=== PATIENT | female | born 1970 | race Caucasian/White ===

== ENCOUNTER → 2016-10-03 | Outpatient (CLI) | payer MEDICARE, OTHER | END | disposition home or self-care (01) | LOC: LABWHC1 07:36 | PROVIDERS: ATTEND Internal Medicine Endocrinology, Diabetes & Metabolism | DX: E11.65 Type 2 diabetes mellitus with hyperglycemia (principal) | CPT/HCPCS: 36415; 82947; 84681 ==

== ENCOUNTER → 2018-02-20 | Outpatient (CLI) | payer MEDICARE, OTHER ==
--- NOTE | 2018-02-26 09:27 | MM ---
Reason for exam: clinical finding. Baseline mammogram. Physical Findings: Nurse did not find any significant physical abnormalities on exam. MG 3D Diag Mammo W/Cad PRAMOD Bilateral CC and MLO view(s) were taken. The breast tissue is heterogeneously dense. This may lower the sensitivity of mammography. There is a 9mm mass at 12:00 o'clock on the left breast at middle depth. No suspicious abnormality on the right breast. There is a right intramammary node. These results were verbally communicated with the patient and result sheet given to the patient on 02/20/18. ASSESSMENT: Incomplete: need additional imaging evaluation, BI-RAD 0 RECOMMENDATION: Ultrasound of the left breast. (upper outer quadrant)
--- NOTE | 2018-02-26 09:29 | USB ---
Reason for exam: additional evaluation requested from abnormal screening. US Breast Limited LT Left limited breast ultrasound including focal area of concern, retroareolar and axilla demonstrates a 0.8 x 0.8 x 0.7cm cystic lesion at 12:00 o'clock, increased through transmission, benign finding. These results were verbally communicated with the patient and result sheet given to the patient on 02/20/18. ASSESSMENT: Benign, BI-RAD 2 RECOMMENDATION: Routine screening mammogram of both breasts in 1 year.
== END | disposition home or self-care (01) ==
LOC: RADMAMWWP 14:05
PROVIDERS: ATTEND Family Medicine
DX: R92.8 Other abnormal and inconclusive findings on diagnostic imaging of breast (principal); N63.10 Unspecified lump in the right breast, unspecified quadrant; N63.20 Unspecified lump in the left breast, unspecified quadrant
CPT/HCPCS: 77066; 76642; G0279; 77062

== ENCOUNTER → 2018-08-26 | Outpatient (CLI) | payer MEDICARE, OTHER ==
--- NOTE | 2018-08-27 08:13 | XR ---
EXAMINATION TYPE: XR Hip Complete LT DATE OF EXAM: 08/26/2018 COMPARISON: None HISTORY: Pain, fall on ice 2 days prior TECHNIQUE: 2 view left hip FINDINGS: There is narrowing of the joint space. The femoral head articulates with the acetabulum. No acute fractures are evident. Some degenerative changes noted at the left sacroiliac joint. IMPRESSION: 1. No acute fractures. 2. Mild degenerative change left hip.
--- NOTE | 2018-08-27 08:14 | XR ---
EXAMINATION TYPE: XR lumbosacral spine min 4V DATE OF EXAM: 08/26/2018 COMPARISON: None HISTORY: Fall on ice 2 days prior TECHNIQUE: Five-view lumbar spine FINDINGS: There 5 lumbar-type vertebral bodies. Visualized pedicles are intact. Subtle scoliosis with convexity to the left centered at L3 is present. Mild facet degenerative changes present L5-S1. No s pondylolytic defects are evident. Disc heights are preserved. Vertebral body heights are preserved. M ild spondylosis is present L3-L4. IMPRESSION: 1. Mild degenerative changes. No acute osseous abnormality evident.
--- NOTE | 2018-08-27 08:16 | XR ---
EXAMINATION TYPE: XR ribs LT w pa chest xray DATE OF EXAM: 08/26/2018 COMPARISON: 07/07/2014 HISTORY: Lower rib pain TECHNIQUE: Chest examined in the frontal projection. Left ribs are examined in 2 views each. FINDINGS: No pneumothorax is evident. No displaced rib fractures are evident. No fluid collection the lung bases evident. No acute pulmonary process is evident. IMPRESSION: 1. Normal left ribs
== END | disposition home or self-care (01) ==
LOC: RADXRYALE 16:04
PROVIDERS: ATTEND Physician Assistant Medical
DX: M16.12 Unilateral primary osteoarthritis, left hip (principal); M47.27 Other spondylosis with radiculopathy, lumbosacral region; R07.89 Other chest pain
CPT/HCPCS: 72110; 73502

== ENCOUNTER → 2019-10-07 | Outpatient (CLI) | payer MEDICARE, OTHER ==
--- NOTE | 2019-10-07 14:22 | XR ---
EXAMINATION TYPE: XR lumbosacral spine min 4V DATE OF EXAM: 10/07/2019 CLINICAL HISTORY: Low back pain after fall last week TECHNIQUE: Frontal, lateral, and oblique images of the lumbar spine are obtained. COMPARISON: 08/26/2018 FINDINGS: There remains a mild levoscoliosis of the lumbar spine. There are 5 lumbar type vertebral bodies identified. The lumbar spine shows satisfactory vertebral body heights. Minimal retrolisthesi s of L3 on L4. Small anterior osteophytes at L2-L3, L3-L4 and L4-5. Mild facet arthropathy at L5-S1. Vertebral body heights and disk space heights are within normal limits. The oblique images appear w ithin normal limits. The overlying soft tissue appears unremarkable. Cholecystectomy clips are prese nt. IMPRESSION: 1. No acute fracture is seen in the lumbar spine. 2. Mildly progressed mild multilevel degenerative disc disease of the lumbar spine in comparison to t he prior. 3. Mild levoscoliosis of the lumbar spine. 4. Minimal retrolisthesis of L3 on L4 is likely on a degenerative basis.
== END | disposition home or self-care (01) ==
LOC: RADXRYALE 13:30
PROVIDERS: ATTEND Physician Assistant
DX: M51.36 Other intervertebral disc degeneration, lumbar region (principal); M43.16 Spondylolisthesis, lumbar region; M41.86 Other forms of scoliosis, lumbar region
CPT/HCPCS: 72110

== ENCOUNTER → 2020-10-10 | Outpatient (CLI) | payer MEDICARE, OTHER ==
--- NOTE | 2020-10-11 10:30 | MM ---
Reason for exam: screening (asymptomatic). Last mammogram was performed 2 years and 8 months ago. History: Family history of breast cancer in mother. Physical Findings: A clinical breast exam by your physician is recommended on an annual basis and results should be correlated with mammographic findings. MG 3D Screening Mammo W/Cad Bilateral CC and MLO view(s) were taken. Prior study comparison: February 20, 2018, bilateral MG 3d diag mammo w/cad PRAMOD. The breast tissue is heterogeneously dense. This may lower the sensitivity of mammography. There is chronic nodularity bilaterally. There is no discrete abnormality. ASSESSMENT: Benign, BI-RAD 2 RECOMMENDATION: Routine screening mammogram of both breasts in 1 year.
== END ==
LOC: RADMAMWWP 16:22
PROVIDERS: ATTEND Family Medicine
DX: Z12.31 Encounter for screening mammogram for malignant neoplasm of breast (principal); Z80.3 Family history of malignant neoplasm of breast
CPT/HCPCS: 77063; 77067

== ENCOUNTER → 2021-07-05 | Outpatient (CLI) | payer MEDICARE, OTHER ==
[~2021-07-05] MED LIST: CASIRIVIMAB (REGN10933) (EUA) 600 MG, IMDEVIMAB (REGN10987) (EUA) 600 MG in SODIUM CHLO... IVPB NR; ONDANSETRON 4 MG/2 ML VIAL IVP ONE; SODIUM CHLORIDE 0.9% 50 ML IVPB ONE; SODIUM CHLORIDE 0.9% 500 ML 500 ML in EMPTY BAG 1 BAG IV PRN
[2021-07-05 14:23] VITALS: TEMP 97.3
[2021-07-05 15:36] VITALS: BP 96/65; PULSE 64; RESP 16
== END | disposition home or self-care (01) ==
LOC: PROCWHC3 13:34
PROVIDERS: ATTEND Physician Assistant
DX: U07.1 COVID-19 (principal)
CPT/HCPCS: 96360; 96375; J2405; Q0244

== ENCOUNTER 2023-04-02 17:22 | Inpatient (IN) | payer MEDICARE, OTHER ==
--- NOTE | 2023-04-02 21:32 | XR ---
EXAM: XR Chest, 2 Views CLINICAL HISTORY: SOB. TECHNIQUE: Frontal and lateral views of the chest. COMPARISON: No relevant prior studies available. FINDINGS: Lungs: No consolidation. Pleural space: No pneumothorax. Heart: Upper limits of normal for size. Mediastinum: Unremarkable. Bones/joints: No acute osseous abnormality. Other: Presumed cholecystectomy clips IMPRESSION: No acute cardiopulmonary abnormality.
[2023-04-03] MEDS ORDERED: ASPIRIN 325 MG TAB PO STA
[2023-04-03] MEDS ORDERED: ONDANSETRON ODT 4 MG TAB PO PRN (00:02)
[2023-04-03] MEDS ORDERED: CYCLOBENZAPRINE 10 MG TAB PO PRN (00:02)
[2023-04-03] MEDS: SODIUM CHLORIDE 0.9% 1,000 ML IV SCH ×2 (00:20→23:56)
[2023-04-03] MEDS: DOCUSATE 100 MG CAP PO SCH ×5 (00:20→23:56)
[2023-04-03] MEDS: traMADol 50 MG TAB PO PRN ×3 (02:41→23:33)
[2023-04-03] MEDS ORDERED: INSULIN ASPART (NovoLOG) 100 UNIT/ML VIAL SQ PRN (04:27)
--- NOTE | 2023-04-03 05:34 | P.HPIM ---
History of Present Illness H&P Date: 04/03/23 Chief Complaint: Left-sided weakness 52-year-old female with diabetes mellitus peripheral neuropathy She comes in from her doctor's office after she went there for evaluation for left-sided weakness she reports that she woke up on Friday, April 02 at 5:30 in the morning feeling weakness in her left upper extremity she didn't think much of it she thought she might have slept off went back to sleep woke up later that morning around 8 or 9 in the morning still having some left-sided weakness noticed that she has left upper and lower extremity weakness but worse in the upper extremities. Denies any falls denies any injuries denies any history of stroke denies any history of A. fib denies any history of blood clots. She also notices that her symptoms were getting worse throughout the day she called her doctor scheduled an appointment upon evaluation by her doctor in the office he immediately recognized possibility of stroke he called 911 and sent her to the ER. Patient reports that her symptoms are not improving and currently consist of left-sided weakness worse in the upper than lower extremities denies any numbness or tingling but reports some slurred speech denies any headache or changes in vision or hearing Again patient denies any history of stroke, TIA, heart attack, blood clots. Denies any head injury or falls. She denies any bleeding denies being on any blood thinners Patient admits to tobacco smoking denies any illicit drugs or alcohol review of systems Pertinent positives as noted in HPI. All other systems were reviewed and are negative on exam Constitutional: No acute distress, conversant, pleasant Eyes: Anicteric sclerae, moist conjunctiva, Pupils equal round reactive to light ENMT: NC/AT Oropharynx clear, no erythema, or exudates Neck: Supple, no masses, or JVD No carotid bruits No thyromegaly Lungs: Clear to auscultation Clear to percussion Normal respiratory effort, no accessory muscle use Cardiovascular: Heart regular in rate and rhythm, No murmurs, gallops, or rubs No peripheral edema Abdominal: Soft Nontender, no guarding, rebound or rigidity Abdomen moving with respiration Normoactive bowel sounds No hepatomegaly, No splenomegaly No palpable mass No abdominal wall hernia noted Skin: Normal temperature, tone, texture, turgor No induration No subcutaneous nodules No rash, lesions No ulcers Extremities: No digital cyanosis No clubbing Pedal pulses intact and symmetrical Radial pulses intact and symmetrical No calf tenderness Psychiatric: Alert and oriented to person, place and time Appropriate affect fair judgement Neuro Muscles Strength 5/5 in right upper and lower extremity, 4 out of 5 in left upper and lower extremity with some slurred speech Sensation to light touch grossly present throughout Cranial nerves II-XII grossly intact Finger-nose is intact on the right side, dysmetria on the left side Lymphatics: no palpable cervical or supraclavicular lymph nodes Past Medical History Past Medical History: Diabetes Mellitus, Fibromyalgia, Hyperlipidemia, Rheumatoid Arthritis (RA) Additional Past Medical History / Comment(s): BACK PAIN, neuropathy History of Any Multi-Drug Resistant Organisms: None Reported Past Surgical History: Appendectomy, Cholecystectomy, Hysterectomy, Joint Replacement, Orthopedic Surgery Additional Past Surgical History / Comment(s): bilateral knee ortho sg, right ankle tumor removal Past Psychological History: Anxiety, Depression Smoking Status: Current every day smoker Past Alcohol Use History: None Reported Past Drug Use History: None Reported Additional Drug Use History / Comment(s): smoking sine she was 10 years old. Medications and Allergies Home Medications Medication Instructions Recorded Confirmed Type ALPRAZolam [Xanax] 1 mg PO BID PRN 07/08/14 04/02/23 History Furosemide [Lasix] 40 mg PO DAILY 07/08/14 04/02/23 History Gabapentin 600 mg PO QID 07/08/14 04/02/23 History Simvastatin [Zocor] 40 mg PO DAILY 07/08/14 04/02/23 History rOPINIRole HCL [Requip] 2 mg PO HS 07/08/14 04/02/23 History traMADol HCl [Ultram] 50 mg PO Q6H PRN 07/08/14 04/02/23 History Cyclobenzaprine [Flexeril] 10 mg PO TID PRN 04/02/23 04/02/23 History DULoxetine HCL [Cymbalta] 30 mg PO DAILY 04/02/23 04/02/23 History Insulin Aspart (For Pump) [NovoLOG 0.01 unit SQ-PUMP CONTINUOUS 04/02/23 04/02/23 History (For Pump)] Ondansetron Odt [Zofran Odt] 4 mg PO Q8HR PRN 04/02/23 04/02/23 History Allergies Allergy/AdvReac Type Severity Reaction Status Date / Time codeine AdvReac Rash/Hives Verified 07/05/21 14:22 ibuprofen [From Motrin] AdvReac Nausea & Verified 07/05/21 14:22 Vomiting insulin detemir AdvReac Rash/Hives Verified 07/05/21 14:22 [From Levemir] insulin lispro AdvReac Rash/Hives Verified 07/05/21 15:42 [From Humalog U-100 Insulin] Physical Exam Vitals: Vital Signs Temp Pulse Pulse Resp BP BP Pulse Ox 04/03/23 04:00 98.1 F 72 18 108/68 97 04/02/23 23:00 65 18 110/59 98 04/02/23 22:31 60 16 115/66 97 04/02/23 20:27 98.1 F 98 18 118/79 98 Intake and Output 04/02/23 04/02/23 04/03/23 14:59 22:59 06:59 Other: Weight 79.379 kg 79.379 kg Thrombosis Risk Factor Assmnt - Choose All That Apply Any of the Below Risk Factors Present?: Yes Each Factor Represents 1 point: Age 41-60 years Other Risk Factors: No Other congenital or acquired thrombophilia - If yes, enter type in comment: No Thrombosis Risk Factor Assessment Total Risk Factor Score: 1 Thrombosis Risk Factor Assessment Level: Low Risk Assessment and Plan Assessment: 52-year-old female with diabetes mellitus on insulin pump comes in from her doctor's office for suspected stroke discussed the case with the ED doctor and accepted the admission for suspected ischemic stroke with left-sided weakness with anticipated length of stay more than 2 midnights Acute ischemic stroke with left-sided weakness Due to downtime of [employer] reports of CAT scan is not currently available however ED doctor reported CT of the brain and CTA of the head and neck both unremarkable Patient given aspirin and statin, no TPA given due to out of the window Continue neuro checks Neurology consultation Consider MRI of the brain Check echocardiogram with bubble study Fall precautions PT/OT evaluation Allow for permissive hypertension Chronic conditions Diabetes mellitus Continue with insulin pump which has automatic CGM monitoring Full code DVT prophylaxis mechanical
[2023-04-03 06:27] LABS: Glucose,Whole Blood 213 mg/dL (70-110)
[2023-04-03 09:16] LABS: Chol/HDL Ratio 3.26 Ratio; LDL Cholesterol,Calculated 41.3 mg/dL (0.0-131.0)
[2023-04-03] MEDS: ATORVASTATIN 20 MG TAB PO SCH (09:35)
[2023-04-03] MEDS: FAMOTIDINE 20 MG TAB PO SCH ×3 (09:35→20:41)
--- NOTE | 2023-04-03 10:08 | US ---
EXAM: US Duplex Left Upper Extremity Veins CLINICAL HISTORY: Left arm swelling today TECHNIQUE: Real-time duplex ultrasound scan of the left upper extremity veins integrating B-mode two-dimensional vascular structure, Doppler spectral analysis, color flow Doppler imaging and compression. COMPARISON: No relevant prior studies available. FINDINGS: Deep veins: Unremarkable. No DVT in the internal jugular, subclavian, axillary, or brachial veins. The veins demonstrate normal color flow, are normally compressible, with normal phasic flow and/or augmentation response. Superficial veins: Unremarkable. No thrombus in the visualized basilic and cephalic veins. Soft tissues: No acute findings. IMPRESSION: Normal left upper extremity duplex venous ultrasound.
--- NOTE | 2023-04-03 10:28 | CT ---
EXAM: CT Angiography Neck With Intravenous Contrast CLINICAL HISTORY: code stroke TECHNIQUE: Routine carotid CT angiography protocol was performed with intravenous contrast. NASCET criteria using the distal ICAs for comparison were used for evaluation of stenoses. CTDI is 26.9 mGy and DLP is 585 mGy-cm. This CT exam was performed using one or more of the following dose reduction techniques: automated exposure control, adjustment of the mA and/or kV according to patient size, and/or use of iterative reconstruction technique. 3D and MIP reconstructed images were created and reviewed. COMPARISON: None FINDINGS: VASCULATURE: Right common carotid artery: Unremarkable. No occlusion or significant stenosis. No dissection. Right internal carotid artery: Unremarkable. Extracranial segment is patent with no occlusion or significant stenosis. No dissection. Right external carotid artery: Unremarkable. No occlusion. Right vertebral artery: Unremarkable. No occlusion or significant stenosis. No dissection. Left common carotid artery: Unremarkable. No occlusion or significant stenosis. No dissection. Left internal carotid artery: Unremarkable. Extracranial segment is patent with no occlusion or significant stenosis. No dissection. Left external carotid artery: Unremarkable. No occlusion. Left vertebral artery: Unremarkable. No occlusion or significant stenosis. No dissection. NECK: Bones/joints: Straightening of the normal cervical lordosis. Degenerative changes of the spine. Soft tissues: Unremarkable. Lung apices: Clear. CAROTID STENOSIS REFERENCE USING NASCET CRITERIA: % ICA stenosis = (1 - narrowest ICA diameter/diameter of distal cervical ICA) x 100. Mild - <50% stenosis. Moderate - 50-69% stenosis. Severe - 70-94% stenosis. Near occlusion - 95-99% stenosis. Occluded - 100% stenosis. IMPRESSION: No significant stenosis, occlusion, or dissection. EXAM: CT Angiography Head With Intravenous Contrast CLINICAL HISTORY: neuro deficit TECHNIQUE: Axial computed tomographic angiography images of the head with intravenous contrast. CTDI is 12.5 mGy and DLP is 585 mGy-cm. This CT exam was performed using one or more of the following dose reduction techniques: automated exposure control, adjustment of the mA and/or kV according to patient size, and/or use of iterative reconstruction technique. 3D and MIP reconstructed images were created and reviewed. COMPARISON: None FINDINGS: Right internal carotid artery: No acute findings. Intracranial segment is patent with no significant stenosis. No aneurysm. Right anterior cerebral artery: Unremarkable. No occlusion or significant stenosis. No aneurysm. Right middle cerebral artery: Unremarkable. No occlusion or significant stenosis. No aneurysm. Right posterior cerebral artery: Unremarkable. No occlusion or significant stenosis. No aneurysm. Right vertebral artery: Unremarkable as visualized. Left internal carotid artery: No acute findings. Intracranial segment is patent with no significant stenosis. No aneurysm. Left anterior cerebral artery: Unremarkable. No occlusion or significant stenosis. No aneurysm. Left middle cerebral artery: Unremarkable. No occlusion or significant stenosis. No aneurysm. Left posterior cerebral artery: Unremarkable. No occlusion or significant stenosis. No aneurysm. Left vertebral artery: Unremarkable as visualized. Basilar artery: Unremarkable. No occlusion or significant stenosis. No aneurysm. IMPRESSION: Normal head CTA. MTDD
--- NOTE | 2023-04-03 10:29 | CT ---
EXAM: CT Head Without Intravenous Contrast CLINICAL HISTORY: neuro deficit code stroke TECHNIQUE: Axial computed tomography images of the head/brain without intravenous contrast. CTDI is 49.1 mGy and DLP is 1104.6 mGy-cm. This CT exam was performed using one or more of the following dose reduction techniques: automated exposure control, adjustment of the mA and/or kV according to patient size, and/or use of iterative reconstruction technique. COMPARISON: None FINDINGS: Brain: No acute infarct or hemorrhage. No extra-axial fluid collection. No mass effect or midline shift. Small remote lacunar infarct or perivascular space in the right basal ganglia. Ventricles and sulci: Normal. No ventriculomegaly or intraventricular hemorrhage. Bones: Normal. No bony lesion or acute fracture. Subcutaneous tissues: Normal. Sinuses: Normal. No air-fluid levels or mucosal thickening. Mastoid air cells: Normal. Orbits: Grossly unremarkable. IMPRESSION: No acute intracranial abnormality. If there is persistent concern for acute infarct, consider further evaluation with MRI. MTDD
[2023-04-03 11:46] LABS: Glucose,Whole Blood 142 mg/dL (70-110)
--- NOTE | 2023-04-03 13:13 | P.CNNES ---
History of Present Illness Consult date: 04/03/23 Requesting physician: Silverio Tolbert Reason for Consult: Left arm weakness/numbness History of Present Illness: Patient is a 52-year-old right-handed female with history of diabetes, hyperlipidemia, came to the hospital yesterday at 5:22 PM for left arm numbness and weakness. Patient states that she went to sleep 11 PM the night prior to arrival in usual state of health. She woke up at 5:30 AM, and felt numbness of the left arm and left hand. She felt that she may have slept wrong, therefore changes the position and went back to sleep. She woke up at 8:30 AM and was no better. She could not seed cone picker anything with the left hand. Her left arm feels ice cold. She tried stretching and forced it to move. She felt as if the left arm was "not a past", like hanging on the side. The whole arm was numb. The left arm swelled up and was hurting. She also noticed a little weakness of the left leg, as feeling weird while walking. Also complaining of tingling in the neck and the left pectoral region and left facial region. Also feels the left face is slightly weaker. Also admits to slightly slurring. Yesterday she went to see her primary physician at an appointment at 3:30 PM. She was transferred to the hospital by ambulance to rule out CVA. Patient was given aspirin 324 mg in the ER. Patient was not a candidate for TPA, as symptoms have been present for over 18 hours prior to presentation. Vital signs on arrival blood pressure 118/79, pulse rate 98 temperature 98.1. Blood test shows negative troponin,, glucose 213. CT head revealed no acute intracranial abnormality. I personally reviewed CT head, agree with the findings. Home medications include Requip 2 mg at bedtime, Lasix 40 mg, Zocor 40 mg, Xanax 1 mg twice a day when necessary, gabapentin 600 mg 4 times a day, tramadol 50 mg every 6 hours, Cymbalta 30 mg, Zofran when necessary Flexeril 10 mg 3 times a day when necessary and insulin. Patient does not take any antiplatelet medication at home. Patient has history of diabetes type 1 since late 30s or early 40s. She has insulin pump. She denies hypertension, does have hyperlipidemia. Patient has history of smoking 1 pack per day since age 10. She has smoked off and on, for about 30 pack years of smoking. Drinks alcohol very rarely, no drugs use. Patient denies any previous history of strokes or TIA. Review of Systems Constitutional: Reports weight loss, Denies chills, Denies fever Ears: deny: decreased hearing, ear discharge Ears, nose, mouth and throat: Denies headache (Gets little headache "here and there"), Denies sore throat Cardiovascular: Denies chest pain, Denies shortness of breath Respiratory: Denies cough, Denies excessive sputum Gastrointestinal: Reports nausea, Denies abdominal pain, Denies diarrhea, Denies vomiting Genitourinary: Reports stress incontinence, Reports urinary frequency Musculoskeletal: Reports low back pain, Reports neck stiffness Musculoskeletal: left: shoulder pain (Soreness in the left shoulder, shooting pain behind the left collarbone) Integumentary: Denies pruritus, Denies rash Neurological: Reports as per HPI Psychiatric: Reports anxiety, Reports depression Endocrine: Reports weight change, Denies fatigue Hematologic/Lymphatic: Reports easy bleeding, Reports easy bruising Past Medical History Past Medical History: Diabetes Mellitus, Fibromyalgia, Hyperlipidemia, Rheumatoid Arthritis (RA) Additional Past Medical History / Comment(s): BACK PAIN, neuropathy History of Any Multi-Drug Resistant Organisms: None Reported Past Surgical History: Appendectomy, Cholecystectomy, Hysterectomy, Joint Replacement, Orthopedic Surgery Additional Past Surgical History / Comment(s): bilateral knee ortho sg, right ankle tumor removal Past Psychological History: Anxiety, Depression Smoking Status: Current every day smoker Past Alcohol Use History: None Reported Past Drug Use History: None Reported Additional Drug Use History / Comment(s): smoking sine she was 10 years old. Medications and Allergies Home Medications Medication Instructions Recorded Confirmed Type ALPRAZolam [Xanax] 1 mg PO BID PRN 07/08/14 04/02/23 History Furosemide [Lasix] 40 mg PO DAILY 07/08/14 04/02/23 History Gabapentin 600 mg PO QID 07/08/14 04/02/23 History Simvastatin [Zocor] 40 mg PO DAILY 07/08/14 04/02/23 History rOPINIRole HCL [Requip] 2 mg PO HS 07/08/14 04/02/23 History traMADol HCl [Ultram] 50 mg PO Q6H PRN 07/08/14 04/02/23 History Cyclobenzaprine [Flexeril] 10 mg PO TID PRN 04/02/23 04/02/23 History DULoxetine HCL [Cymbalta] 30 mg PO DAILY 04/02/23 04/02/23 History Insulin Aspart (For Pump) [NovoLOG 0.01 unit SQ-PUMP CONTINUOUS 04/02/23 04/02/23 History (For Pump)] Ondansetron Odt [Zofran Odt] 4 mg PO Q8HR PRN 04/02/23 04/02/23 History Allergies Allergy/AdvReac Type Severity Reaction Status Date / Time codeine AdvReac Rash/Hives Verified 07/05/21 14:22 ibuprofen [From Motrin] AdvReac Nausea & Verified 07/05/21 14:22 Vomiting insulin detemir AdvReac Rash/Hives Verified 07/05/21 14:22 [From Levemir] insulin lispro AdvReac Rash/Hives Verified 07/05/21 15:42 [From Humalog U-100 Insulin] Physical Examination - Vital Signs Vital Signs: Vital Signs Temp Pulse Pulse Resp BP BP Pulse Ox 04/03/23 08:53 97 04/03/23 04:00 98.1 F 72 18 108/68 97 04/02/23 23:00 65 18 110/59 98 04/02/23 22:31 60 16 115/66 97 04/02/23 20:27 98.1 F 98 18 118/79 98 Intake and Output 04/02/23 04/03/23 04/03/23 22:59 06:59 14:59 Other: Weight 79.379 kg 79.379 kg Patient is a middle aged female, in no acute distress. Patient is alert awake oriented to time place and person. Speech and language functions are normal. Patient can name and repeat very well. No aphasia or dysarthria. Attention, concentration and fund of knowledge is adequate. On cranial nerve examination, pupils are equal, round and reacting to light, visual mtz are full on confrontation, with no neglect on double simultaneous stimulation. Extraocular muscles are intact with no nystagmus. Face is symmetric, tongue protrudes to the midline. Palatal elevation and sensation normal, hearing and shoulder shrug normal, facial sensation decreased on the left. On muscle strength testing, there is mild left pronator drift about 10. The muscle strength is (right/left) deltoid 5/5-, biceps 5/5, triceps 5/4+, sheet metal installer 5/4, hip flexion 5/5, ankle dorsiflexion 5/5. Deep tendon reflexes are symmetric and trace at the biceps, 0 brachioradialis, trace at the triceps, 0 at the knees and ankles and plantars are flat bilaterally. Sensory to touch is decreased in the left side of the body including face arm and leg. Cerebellar function showed no ataxia for [id number] testing, although she was quite slow to perform task on the left. Rapid finger tapping is much slower on the left. No ataxia for [id number] testing on either side. Tone and bulk of muscles normal. Gait deferred.. On general examination, there is no carotid bruit or murmur, S1-S2 audible. Chest is clear on consultation. Abdomen is soft nontender. No organomegaly, bowel sounds present. Peripheral pulses are present. Very mild peripheral edema. Her left arm is more swollen as compared to the right. Results - Laboratory Findings Abnormal Lab Findings: Abnormal Labs 04/03/23 04/03/23 04:41 06:26 POC Glucose (mg/dL) 213 H HDL Cholesterol 27.30 L Assessment and Plan Assessment: * Acute onset of left arm weakness with some soreness in the left pectoral region. Patient also has some numbness of the left arm and left leg. Differential diagnosis is between CVA versus brachial plexopathy. Current NIH stroke scale is 2. * Type 1 diabetes, not well controlled * Hyperlipidemia * Tobacco use * Anxiety/depression Plan: * Patient was not taking any antiplatelet medication. Patient has been given aspirin 325 mg in the ER. Agree with continue aspirin 81 mg daily for now. * MRI of the brain without contrast, evaluate for acute CVA * MRI of the left brachial plexus with and without contrast rule out brachial plexopathy * 2-D echo with bubble study to rule out PFO * CTA head and neck showed: Normal CTA of the head. Normal CTA of neck, with no significant stenosis or occlusion or dissection. * Fasting a.m. lipid panel cholesterol 89, LDL 41, HDL 27 and triglycerides 102. Patient was on Zocor 40 mg daily which can be continued. In the hospital patient is receiving Lipitor 20 mg daily. * Hemoglobin A1c 8.9 on 12/27/2022. Recommend optimize control of diabetes to target A1c < 7.0. * Check B12, folate. * Permissive hypertension for next 24-48 hours * Close neuro checks. * Recommend complete tobacco cessation. * Telemetry monitoring rule out any arrhythmia * PT OT. * DVT prophylaxis: Lovenox 40 units subcu every day * Neurology will continue to follow. Thank you for the consult.
[2023-04-03 16:30] LABS: Glucose,Whole Blood 193 mg/dL (70-110)
[2023-04-03] MEDS: GABAPENTIN 300 MG CAP PO SCH ×2 (16:40→20:40)
[2023-04-03] MEDS: ENOXAPARIN 40 MG/0.4 ML SYRINGE SQ SCH (16:40)
[2023-04-03] MEDS: ALPRAZolam 1 MG TAB PO PRN (16:40)
[2023-04-03] MEDS: Insulin Aspart (For Pump) 100 UNIT/ML VIAL SQ-PUMP SCH (18:12)
[2023-04-03] MEDS: INSPUCOR MISCELLANE PRN ×2 (18:13→20:41)
[2023-04-03 20:24] LABS: Glucose,Whole Blood 311 mg/dL (70-110)
[2023-04-04 06:06] LABS: Glucose,Whole Blood 219 mg/dL (70-110)
[2023-04-04] MEDS: ENOXAPARIN 40 MG/0.4 ML SYRINGE SQ SCH (08:47)
[2023-04-04] MEDS: DOCUSATE 100 MG CAP PO SCH ×3 (08:47→23:51)
[2023-04-04] MEDS: FUROSEMIDE 40 MG TAB PO SCH (08:47)
[2023-04-04] MEDS: FAMOTIDINE 20 MG TAB PO SCH ×2 (08:47→21:11)
[2023-04-04] MEDS: DULoxetine HCL 30 MG CAPSULE.DR PO SCH (08:47)
[2023-04-04] MEDS: GABAPENTIN 300 MG CAP PO SCH ×4 (08:47→21:10)
[2023-04-04] MEDS: ASPIRIN 81 MG PO SCH (08:47)
[2023-04-04] MEDS: ATORVASTATIN 20 MG TAB PO SCH (08:47)
[2023-04-04] MEDS: ALPRAZolam 1 MG TAB PO PRN (08:50)
[2023-04-04] MEDS ORDERED: ASPIRIN 325 MG TAB PO SCH (09:00)
[2023-04-04 09:47] LABS: Basophils % (A) 0 %; Eosinophils # (A) 0.1 k/uL (0-0.7); Eosinophils % (A) 2 %; HCT 39.6 % (34.0-46.0); Lymphocytes # (A) 1.8 k/uL (1.0-4.8); Lymphocytes % (A) 33 %; MCH 31.2 pg (25.0-35.0); MCHC 32.9 g/dL (31.0-37.0); MCV 94.7 fL (80.0-100.0); Monocytes # (A) 0.2 k/uL (0-1.0); Monocytes % (A) 4 %; Neutrophils # (A) 3.4 k/uL (1.3-7.7); Neutrophils % (A) 60 %; Platelet Count 179 k/uL (150-450); RBC 4.18 m/uL (3.80-5.40); RDW 12.3 % (11.5-15.5); WBC 5.6 k/uL (3.8-10.6)
[2023-04-04 10:03] LABS: African American GFR (CKD) >90 (>60 ml/min/1.73 sqM); Anion Gap 5 mmol/L; Blood Urea Nitrogen 12 mg/dL (7-17); Calcium 8.8 mg/dL (8.4-10.2); Carbon Dioxide 29 mmol/L (22-30); Chloride 105 mmol/L (98-107); Glucose 263 mg/dL (74-99); Magnesium 1.8 mg/dL (1.6-2.3); Non-African American GFR(CKD) >90 (>60 ml/min/1.73 sqM); Potassium 4.2 mmol/L (3.5-5.1); Sodium 139 mmol/L (137-145)
[2023-04-04 11:28] LABS: Glucose,Whole Blood 335 mg/dL (70-110)
--- NOTE | 2023-04-04 12:49 | CA ---
Transthoracic Echo Report Name: Geri Augustin Age: 52 Gender: F : 1970 Exam Date: 04/03/2023 11:05 Exam Location: [facility] Ht (in): 67 Wt (lb): 175 Ordering Physician: Madan Danielle MD Attending/Referring Phys: [id number], Lolis Wire Bender Hand Kadeem Saavedra Procedure CPT: Indications: bubble study, stroke Cardiac Hx: Technical Quality: Fair Contrast 1: Total Dose (mL): Contrast 2: Total Dose (mL): MEASUREMENTS (Male / Female) Normal Values 2D ECHO LV Diastolic Diameter PLAX 4.3 cm 4.2 - 5.9 / 3.9 - 5.3 cm LV Systolic Diameter PLAX 2.4 cm IVS Diastolic Thickness 0.7 cm 0.6 - 1.0 / 0.6 - 0.9 cm LVPW Diastolic Thickness 0.8 cm 0.6 - 1.0 / 0.6 - 0.9 cm LV Relative Wall Thickness 0.3 RV Internal Dim ED PLAX 2.6 cm LVOT Diameter 2.0 cm Aortic Root Diameter 2.9 cm LA Systolic Diameter LX 2.0 cm 3.0 - 4.0 / 2.7 - 3.8 cm LV Diastolic Volume MOD BP 46.5 cm??? 67 - 155 / 56 - 104 cm??? LV Systolic Volume MOD BP 21.5 cm??? 22 - 58 / 19 - 49 cm??? LV Ejection Fraction MOD BP 53.8 % >= 55 % LV Cardiac Index MOD BP 717.8 cm???/min???m??? LV Diastolic Volume MOD 4C 51.5 cm??? LV Systolic Volume MOD 4C 22.2 cm??? LV Ejection Fraction MOD 4C 56.9 % LV Cardiac Index MOD 4C 839.4 cm???/min???m??? LV Diastolic Length 4C 7.3 cm LV Systolic Length 4C 5.8 cm LV Diastolic Volume MOD 2C 39.7 cm??? LV Systolic Volume MOD 2C 19.4 cm??? LV Ejection Fraction MOD 2C 51.1 % LV Cardiac Index MOD 2C 582.1 cm???/min???m??? LV Diastolic Length 2C 6.8 cm LV Systolic Length 2C 6.4 cm LA Volume 40.0 cm??? 18 - 58 / 22 - 52 cm??? DOPPLER AV Peak Velocity 114.2 cm/s AV Peak Gradient 5.2 mmHg LVOT Peak Velocity 110.3 cm/s LVOT Peak Gradient 4.9 mmHg AV Area Cont Eq pk 2.9 cm??? MV Peak Velocity 92.9 cm/s MV Peak Gradient 3.5 mmHg MV Mean Velocity 47.2 cm/s MV Mean Gradient 1.1 mmHg MV Velocity Time Integral 39.7 cm Mitral E Point Velocity 76.7 cm/s Mitral A Point Velocity 67.0 cm/s Mitral E to A Ratio 1.1 MV Deceleration Time 272.9 ms MV E' Velocity 11.5 cm/s Mitral E to MV E' Ratio 6.7 TR Peak Velocity 170.4 cm/s TR Peak Gradient 11.6 mmHg Right Ventricular Systolic Press 17.0 mmHg PV Peak Velocity 77.5 cm/s PV Peak Gradient 2.4 mmHg FINDINGS Left Ventricle Normal LV size and wall thickness. Left ventricular ejection fraction is estimated at 50-55 %. No obvious regional wall motion abnormality Right Ventricle Normal right ventricular size. RVSP= 21mmHg. Right Atrium Normal right atrial size. Left Atrium Negative agitated saline study. Normal left atrial size. LA volume index= 21m/m2 Mitral Valve Structurally normal mitral valve. Trace MR. Aortic Valve Trileaflet aortic valve. No aortic valve stenosis or regurgitation. Tricuspid Valve Tricuspid valve not well visualized. Mild TR. Pulmonic Valve Pulmonic valve not well visualized. No pulmonic regurgitation. Pericardium No pericardial effusion Aorta Normal size aortic root and proximal ascending aorta. CONCLUSIONS Negative saline bubble study.Normal LV size and wall thickness. Left ventricular ejection fraction is estimated at 50-55 %. No obvious regional wall motion abnormality. No significant valvular dysfunction. No pericardial effusion No prior echocardiogram to compare with Previewed by: Dr Srinivasa Gant (Electronically Signed) Final Date: 04 April 2023 12:48
--- NOTE | 2023-04-04 13:30 | MR ---
EXAMINATION TYPE: MR brain wo con DATE OF EXAM: 04/04/2023 1:04 PM CLINICAL INDICATION:Female, 52 years old with history of CVA vs brachial plexopathy, Left arm numbnes s COMPARISON: None. TECHNIQUE: Multi planar, multi sequence imaging was performed through the brain including: T1, T2, In version recovery, Diffusion weighted imaging, and gradient echo imaging. No gadolinium was given. FINDINGS: The smith-white junctions, ventricular system, and cisterns appear unremarkable. Scattered foci of hi gh T2 signal intensity are seen within the periventricular white matter. Midline structures show no a bnormality. Diffusion-weighted imaging shows no evidence of restricted diffusion. The susceptibility weighted images do not reveal any evidence for micro-hemorrhage. The bone marrow signal is within normal limits. Paranasal sinuses and mastoid air cells: No significant paranasal sinus disease. Visualized orbits: Orbital contents are intact. IMPRESSION: 1. No evidence of intracranial mass or acute/subacute infarct. 2. Nonspecific white matter changes, likely secondary to small vessel ischemic disease.
[2023-04-04 14:08] VITALS: RESP 18
--- NOTE | 2023-04-04 15:19 | P.PN ---
Subjective Progress Note Date: 04/04/23 Patient was seen for a follow-up. Patient says that she still has some soreness in the left anterior shoulder underneath the collarbone. She continues to have soreness in the lateral upper arm, extensor forearm with numbness of the flexor forearm and the palm of the hand more so in the medial 3 fingers as compared to the outer 2 fingers. Continues to have weakness in the left upper limb. The numbness extends to the left side of the neck, jaw and gives a headache. Her neck is supple. Objective - Vital Signs Vital signs: Vital Signs Temp 98.5 F 04/04/23 08:00 Pulse 70 04/04/23 14:00 Resp 18 04/04/23 14:00 BP 119/69 04/04/23 12:00 Pulse Ox 99 04/04/23 12:00 FiO2 Intake & Output 04/03/23 04/04/23 04/04/23 18:59 06:59 18:59 Intake Total 238 480 Balance 238 480 Intake: Oral 238 480 Other: # Voids 2 - Exam Patient's mental status, speech and language functions are normal. Cranial nerves II through XII are normal. Pupils are about 4 mm, reacting bilaterally. No Franklyn's syndrome. On muscle strength testing the strength is (right/left) deltoid 5/5, triceps 5/5, biceps 5/5, wrist extension 5/3, wrist flexion 5/3, finger flexion 5/4, thumb extension 5/4-, thumb adduction 5/4-, thumb flexion 5/4. The strength is normal in the lower limbs. Deep tendon reflexes are trace in the upper limbs at biceps and brachioradialis, 1 at the knees, trace ankles and plantars are downgoing. Sensory touch is decreased in the left arm in the flexor forearm and the palm of the hand. 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 CVA ruled out. * Type 1 diabetes, not well controlled * Hyperlipidemia * Tobacco use * Anxiety/depression Plan: * Patient was not taking any antiplatelet medication. Patient has been given aspirin 325 mg in the ER. Agree with continue aspirin 81 mg daily for now. * MRI of the brain without contrast, revealed no evidence of acute CVA. * MRI of the left brachial plexus with and without contrast results still pending. * Patient probably has left brachial plexopathy. Patient will be started on Solu-Medrol 125 mg IV push every 6 hours. Need to watch closely her blood sugars. * 2-D echo with bubble study revealed negative saline bubble study. Normal left ventricular size and wall thickness. Left ventricular ejection fraction is 50-55%. No obvious regional wall motion abnormality. No significant valvular dysfunction. * CTA head and neck showed: Normal CTA of the head. Normal CTA of neck, with no significant stenosis or occlusion or dissection. * Fasting a.m. lipid panel cholesterol 89, LDL 41, HDL 27 and triglycerides 102. Patient was on Zocor 40 mg daily which can be continued. In the hospital patient is receiving Lipitor 20 mg daily. * Hemoglobin A1c 8.9 on 12/27/2022. Recommend optimize control of diabetes to target A1c < 7.0. * Check B12, folate. * Permissive hypertension for next 24-48 hours * Close neuro checks. * Recommend complete tobacco cessation. * Telemetry monitoring rule out any arrhythmia * PT OT. * DVT prophylaxis: Lovenox 40 units subcu every day * Dr. Flower will cover neurology service over the weekend.
[2023-04-04] MEDS: CYANOCOBALAMIN 500 MCG TAB PO SCH (15:54)
[2023-04-04] MEDS ORDERED: methylPREDNISolone SOD SUCCIN 250 MG in SODIUM CHLORIDE 0.9% 100 ML IVPB ONE (16:00)
[2023-04-04 16:18] LABS: Glucose,Whole Blood 352 mg/dL (70-110)
[2023-04-04] MEDS: Insulin Aspart (For Pump) 100 UNIT/ML VIAL SQ-PUMP SCH (16:39)
--- NOTE | 2023-04-04 17:08 | P.PN ---
Subjective Progress Note Date: 04/04/23 No new cmplaints. Weakness imrppoving Gen: awake, alert HEENT: normocephalic, atraumatic, good hearing acuity, moist mucous membranes Resp: good air exchange, breathing comfortably with no accessory muscle use CVS: good distal perfusion x 4, GI: soft, NTTP, ND : no SPT, no CVAT, zuniga catheter not present MSK: no pitting edema, no clubbing Neuro: Left upper extremity weakness Psych: cooperative, euthymic mood Assessment/plan: 52-year-old female with diabetes mellitus on insulin pump comes in from her doctor's office for suspected stroke discussed the case with the ED doctor and accepted the admission for suspected ischemic stroke with left-sided weakness with anticipated length of stay more than 2 midnights Acute ischemic stroke with left-sided weakness Due to downtime of [employer] reports of CAT scan is not currently available however ED doctor reported CT of the brain and CTA of the head and neck both unremarkable Patient given aspirin and statin, no TPA given due to out of the window Continue neuro checks MRI Brain negative for CVA MRI Brachial plexus is pending Check echocardiogram with bubble study shows good EF, no PFO, no WMA, no clot Fall precautions PT/OT evaluation Allow for permissive hypertension Chronic conditions Diabetes mellitus Continue with insulin pump which has automatic CGM monitoring Full code DVT prophylaxis mechanical Objective - Vital Signs Vital signs: Vital Signs Temp 98.5 F 04/04/23 08:00 Pulse 70 04/04/23 14:00 Resp 18 04/04/23 14:00 BP 119/69 04/04/23 12:00 Pulse Ox 99 04/04/23 12:00 FiO2 Intake & Output 04/03/23 04/04/23 04/04/23 18:59 06:59 18:59 Intake Total 238 480 Balance 238 480 Intake: Oral 238 480 Other: # Voids 2 1 1 - Labs CBC & Chem 7: 04/04/23 08:55 04/04/23 08:55 Labs: Abnormal Lab Results - Last 24 Hours (Table) 04/03/23 04/04/23 04/04/23 Range/Units 20:22 06:05 08:55 Glucose 263 H (74-99) mg/dL POC Glucose (mg/dL) 311 H 219 H (70-110) mg/dL 04/04/23 04/04/23 Range/Units 11:26 16:16 Glucose (74-99) mg/dL POC Glucose (mg/dL) 335 H 352 H (70-110) mg/dL
[2023-04-04] MEDS ORDERED: methylPREDNISolone SOD SUCCI 125 MG/2 ML VIAL IV SCH (18:00)
[2023-04-04 19:54] LABS: Glucose,Whole Blood 531 mg/dL (70-110)
[2023-04-04 21:24] LABS: Glucose,Whole Blood 395 mg/dL (70-110)
[2023-04-04] MEDS: methylPREDNISolone SOD SUCCI 125 MG/2 ML VIAL IVP SCH (23:50)
[2023-04-05] MEDS ORDERED: methylPREDNISolone SOD SUCCIN 125 MG in SODIUM CHLORIDE 0.9% 100 ML IVPB SCH (00:01)
[2023-04-05 05:54] LABS: Glucose,Whole Blood 443 mg/dL (70-110)
[2023-04-05] MEDS: methylPREDNISolone SOD SUCCI 125 MG/2 ML VIAL IVP SCH (07:47)
[2023-04-05] MEDS: DULoxetine HCL 30 MG CAPSULE.DR PO SCH (08:33)
[2023-04-05] MEDS: FUROSEMIDE 40 MG TAB PO SCH (08:33)
[2023-04-05] MEDS: ASPIRIN 81 MG PO SCH (08:33)
[2023-04-05] MEDS: CYANOCOBALAMIN 500 MCG TAB PO SCH (08:33)
[2023-04-05] MEDS: GABAPENTIN 300 MG CAP PO SCH ×2 (08:34→12:18)
[2023-04-05] MEDS: ATORVASTATIN 20 MG TAB PO SCH (08:34)
[2023-04-05] MEDS: ALPRAZolam 1 MG TAB PO PRN (08:35)
[2023-04-05] MEDS: DOCUSATE 100 MG CAP PO SCH (08:39)
[2023-04-05] MEDS: ENOXAPARIN 40 MG/0.4 ML SYRINGE SQ SCH (08:39)
[2023-04-05] MEDS: FAMOTIDINE 20 MG TAB PO SCH (08:40)
[2023-04-05 09:25] VITALS: BP 124/62; PULSE 82; TEMP 99.2
[2023-04-05] MEDS ORDERED: INSULIN REGULAR 100 UNIT/ML VIAL (IM/SQ) SQ STA (09:30)
[2023-04-05 10:18] LABS: Basophils % (A) 0 %; Eosinophils # (A) 0.1 k/uL (0-0.7); Eosinophils % (A) 1 %; HGB 14.4 gm/dL (11.4-16.0); Lymphocytes # (A) 0.9 k/uL (1.0-4.8); Lymphocytes % (A) 7 %; MCH 30.7 pg (25.0-35.0); MCHC 32.7 g/dL (31.0-37.0); MCV 93.9 fL (80.0-100.0); Mean Platelet Volume 10.5; Monocytes # (A) 0.2 k/uL (0-1.0); Monocytes % (A) 2 %; Neutrophils # (A) 11.1 k/uL (1.3-7.7); Neutrophils % (A) 90 %; Platelet Count 194 k/uL (150-450); RBC 4.69 m/uL (3.80-5.40); RDW 12.3 % (11.5-15.5); WBC 12.4 k/uL (3.8-10.6)
[2023-04-05 10:42] LABS: African American GFR (CKD) >90 (>60 ml/min/1.73 sqM); Anion Gap 12 mmol/L; Blood Urea Nitrogen 15 mg/dL (7-17); Calcium 9.6 mg/dL (8.4-10.2); Carbon Dioxide 22 mmol/L (22-30); Chloride 99 mmol/L (98-107); Magnesium 1.6 mg/dL (1.6-2.3); Non-African American GFR(CKD) >90 (>60 ml/min/1.73 sqM); Potassium 4.4 mmol/L (3.5-5.1); Sodium 133 mmol/L (137-145)
[2023-04-05 10:54] LABS: Glucose 533 mg/dL (74-99)
[2023-04-05] MEDS ORDERED: INSULIN ASPART (NovoLOG) 100 UNIT/ML VIAL SQ ONE (11:00)
--- NOTE | 2023-04-05 11:25 | P.PN ---
Subjective Progress Note Date: 04/05/23 The pt is 52y/o female who is seen in neurologic follow up on 2022, in collaboration with Teressa Kessler, via teleneurology. The pt reports that she is continuing to have improvement in the strength of her left arm and hand. She does still have numbness of the dorsal and barron aspect of her hand, as well as the fingers, mostly the medial 3. MRI of the brachial plexus has been completed, however, there is no read and likely will not be completed until tomorrow. The pt's chart has been reviewed. Objective - Vital Signs Vital signs: Vital Signs Temp 99.2 F 04/05/23 08:00 Pulse 82 04/05/23 08:00 Resp 18 04/05/23 08:00 BP 124/62 04/05/23 08:00 Pulse Ox 67 L 04/05/23 04:00 FiO2 Intake & Output 04/04/23 04/05/23 04/05/23 18:59 06:59 18:59 Intake Total 660 358 Balance 660 358 Intake: Oral 660 358 Other: # Voids 1 1 - Exam General: The pt is seated in the bed. She is in no distress. HEENT: Head is atraumatic, normocephalic Neurologic examination Mental status: The pt is awake, alert and oriented X 3. Speech is clear. CN: II-XII grossly intact Motor: Right sided strength and left lower extremity strength 5/5. Left convention worker 4, finger abductors 3, opponens pollis 2, flexor digiti minimi 2, flexor pollis 3, wrist extention 2, wrist flexion 5, biceps, triceps and deltoid 5 Sensation: Decreased light touch of left hand and forearm vs. right Deep tendon reflexes: Left biceps and triceps 2/4. Left brachioradialis absent. Right sided reflexes 2/4. Lowers not assessed - Labs CBC & Chem 7: 04/05/23 09:04/05/23 09: Labs: Abnormal Lab Results - Last 24 Hours (Table) 04/04/23 04/04/23 04/04/23 Range/Units 11:26 16:16 19:52 WBC (3.8-10.6) k/uL Neutrophils # (1.3-7.7) k/uL Lymphocytes # (1.0-4.8) k/uL Sodium (137-145) mmol/L Glucose (74-99) mg/dL POC Glucose (mg/dL) 335 H 352 H 531 H (70-110) mg/dL 04/04/23 04/05/23 04/05/23 Range/Units 21:14 05:53 09:23 WBC 12.4 H (3.8-10.6) k/uL Neutrophils # 11.1 H (1.3-7.7) k/uL Lymphocytes # 0.9 L (1.0-4.8) k/uL Sodium (137-145) mmol/L Glucose (74-99) mg/dL POC Glucose (mg/dL) 395 H 443 H (70-110) mg/dL 04/05/23 Range/Units 09:23 WBC (3.8-10.6) k/uL Neutrophils # (1.3-7.7) k/uL Lymphocytes # (1.0-4.8) k/uL Sodium 133 L (137-145) mmol/L Glucose 533 H* (74-99) mg/dL POC Glucose (mg/dL) (70-110) mg/dL Assessment and Plan Assessment: 1. Left arm weakness and numbness possible/probable brachial plexus injury 2. MRI brain negative for stroke Plan: 1. The pt is neurologically stable for discharge 2. DC with Rx for Prednisone 20mg- 60mg x5 days, then 40mg x 5days, then 30 x5, then 20x 5days, then DC. 3. Pt should have EMG done at Dr. Nassar's office 4. Continue working with PT for strenghtening Time with Patient: Greater than 30 (spent 35 minutes caring for this pt today)
[2023-04-05 11:26] LABS: Glucose,Whole Blood 455 mg/dL (70-110)
--- NOTE | 2023-04-05 12:09 | P.DS ---
Providers Date of admission: 04/02/23 23:47 Expected date of discharge: 04/05/23 Attending physician: Madan Danielle MD Consults: 04/03/23 00:00 Consult Physician Routine Consulting Provider: Jaya Davis Consult Reason/Comments: Left arm weakness/numbness Do you want consulting provider notified?: Yes Primary care physician: [facility] Course: TIA versus CVA Brachial Plexopathy DM II 52 year old woman with DM on insulin pump presented for left upper extremity weakness. On arrival, patient was afebrile, 118/79, heart rate 98, 98% on room air. CBC is unremarkable. Basic metabolic panel was unremarkable. Lipid panel is unremarkable. CT of the head was negative for acute intracranial abnormality. CT angiography of the head and neck had no acute findings. Venous Doppler was normal in the left upper extending. Chest x-ray showed no acute cardiopulmonary abnormality. Echocardiogram showed normal ejection fraction, normal right ventricular size. Neurology was consulted and helped with management of the patient, recommended MRI of the brain as well as of the brachial plexus. MRI of the brain was negative for acute stroke. Patient was reevaluated by neurology on 04/05 and determined stable for discharge with prednisone taper. She should follow up with neurology as an outpatient. I spent 38 minutes coordinating this discharge on 04/05 Gen: awake, alert HEENT: normocephalic, atraumatic, good hearing acuity, moist mucous membranes Resp: good air exchange, breathing comfortably with no accessory muscle use CVS: good distal perfusion x 4, GI: soft, NTTP, ND : no SPT, no CVAT, zuniga catheter not present MSK: no pitting edema, no clubbing Neuro: Left upper extremity weakness Psych: cooperative, euthymic mood Patient Condition at Discharge: Good Plan - Discharge Summary Discharge Rx Participant: No New Discharge Prescriptions: New RX: predniSONE [Deltasone] 0 mg PO DIRECTED #32 tab RX: Aspirin 81 mg PO DAILY #30 tab Continue RX: rOPINIRole HCL [Requip] 2 mg PO HS RX: Furosemide [Lasix] 40 mg PO DAILY RX: Simvastatin [Zocor] 40 mg PO DAILY RX: ALPRAZolam [Xanax] 1 mg PO BID PRN PRN Reason: Anxiety RX: Gabapentin 600 mg PO QID RX: traMADol HCl [Ultram] 50 mg PO Q6H PRN PRN Reason: Mild Pain RX: DULoxetine HCL [Cymbalta] 30 mg PO DAILY RX: Ondansetron Odt [Zofran ODT] 4 mg PO Q8HR PRN PRN Reason: Nausea RX: Cyclobenzaprine [Flexeril] 10 mg PO TID PRN PRN Reason: Muscle Pain RX: Insulin Aspart (For Pump) [NovoLOG (For Pump)] 0.01 unit SQ-PUMP CONTINUOUS Discharge Medication List RX: ALPRAZolam [Xanax] 1 mg PO BID PRN 07/08/14 [History] RX: Furosemide [Lasix] 40 mg PO DAILY 07/08/14 [History] RX: Gabapentin 600 mg PO QID 07/08/14 [History] RX: Simvastatin [Zocor] 40 mg PO DAILY 07/08/14 [History] RX: rOPINIRole HCL [Requip] 2 mg PO HS 07/08/14 [History] RX: traMADol HCl [Ultram] 50 mg PO Q6H PRN 07/08/14 [History] RX: Cyclobenzaprine [Flexeril] 10 mg PO TID PRN 04/02/23 [History] RX: DULoxetine HCL [Cymbalta] 30 mg PO DAILY 04/02/23 [History] RX: Insulin Aspart (For Pump) [NovoLOG (For Pump)] 0.01 unit SQ-PUMP CONTINUOUS 04/02/23 [History] RX: Ondansetron Odt [Zofran ODT] 4 mg PO Q8HR PRN 04/02/23 [History] RX: Aspirin 81 mg PO DAILY #30 tab 04/04/23 [Rx] RX: predniSONE [Deltasone] 0 mg PO DIRECTED #32 tab 04/04/23 [Rx] Follow up Appointment(s)/Referral(s): Omar Peacock DO [Primary Care Provider] - 1 Week Activity/Diet/Wound Care/Special Instructions: Outpatient physical therapy recommended - follow up with Dr. Peacock for orders for outpatient physical therapy Discharge Disposition: HOME SELF-CARE
[2023-04-05] MEDS ORDERED: INSULIN ASPART (NovoLOG) 100 UNIT/ML VIAL SQ SCH ×2 (12:30)
[2023-04-05 15:41] LABS: Glucose,Whole Blood 318 mg/dL (70-110)
--- NOTE | 2023-04-06 14:19 | MR ---
EXAMINATION TYPE: MR brachial plexus LT wo/w con DATE OF EXAM: 04/04/2023 COMPARISON: None HISTORY: Left arm numbness CONTRAST: Performed utilizing 7.5 mL intravenous Gadavist gadolinium contrast. TECHNIQUE: Multiplanar, multiecho imaging on a 3.0 Radha magnet is performed through the left brachia l plexus. Findings: Brachial plexus nerves as visualized appear normal. Off coronal plane images appear to well demonstrate the brachial plexus. No suspicious changes. No suspicious axillary masses are evident. N o suspicious adenopathy is present. Prevertebral space within the field of view appears normal no obvious foraminal stenosis is evident. Following intravenous administration of contrast no suspicious enhancement is evident. IMPRESSION: 1. No suspicious left brachial plexus abnormality to account for left hand numbness. Consider cervica l spine MRI for additional evaluation.
== END 2023-04-05 16:37 | disposition home or self-care (01) | DRG 74 ==
LOC: EC 17:22 → 3SCARD 23:47
PROVIDERS: ADMIT Internal Medicine; ATTEND Internal Medicine
DX: E10.42 Type 1 diabetes mellitus with diabetic polyneuropathy (principal); G45.9 Transient cerebral ischemic attack, unspecified; G54.0 Brachial plexus disorders; E10.65 Type 1 diabetes mellitus with hyperglycemia; M06.9 Rheumatoid arthritis, unspecified; F32.A Depression, unspecified; Z79.4 Long term (current) use of insulin; E78.5 Hyperlipidemia, unspecified; F17.210 Nicotine dependence, cigarettes, uncomplicated; M79.7 Fibromyalgia; M54.9 Dorsalgia, unspecified; F41.9 Anxiety disorder, unspecified; R47.81 Slurred speech; Z96.41 Presence of insulin pump (external) (internal); Z96.653 Presence of artificial knee joint, bilateral; Z79.899 Other long term (current) drug therapy; Z88.5 Allergy status to narcotic agent; Z88.6 Allergy status to analgesic agent; Z88.8 Allergy status to other drugs, medicaments and biological substances
CPT/HCPCS: 70450; 70496; 70498; 70551; 71046; 71552; 80048; 80061; 82607; 82746; 83735; 84484; 85025; 93306; 94760; 99285; 99291